=== PATIENT | male | born 1980 | race Caucasian/White ===

== ENCOUNTER 2018-06-12 12:11 | Outpatient (CLI) | payer OTHER ==
--- NOTE | 2018-06-13 10:40 | XRAY Report ---
Reason: LOW BACK PAIN Procedure Date: 06/12/2018 Accession Number: [id number] / [id number] Procedure: XR - Lumbar Spine 2 View CPT Code: FULL RESULT: EXAM: LUMBOSACRAL SPINE RADIOGRAPHY EXAM DATE: 06/12/2018 01:13 PM. CLINICAL HISTORY: LOW BACK PAIN. COMPARISONS: None. TECHNIQUE: 3 views. FINDINGS: Alignment: Normal. No spondylolisthesis or scoliosis. Bones: Five [id number] lumbar vertebral bodies are present. No fractures or bone lesions. Disks: Normal. Disk heights are maintained. Facets: No degenerative changes. Sacroiliac Joints: Unremarkable. Soft Tissues: Normal. The visualized bowel gas pattern is normal. IMPRESSION: Normal lumbar spine radiography. [facility]
== END 2018-06-12 12:12 | disposition home or self-care (01) ==
LOC: DI 12:11
PROVIDERS: ATTEND Chiropractor
DX: M54.5 Low back pain (principal)
CPT/HCPCS: 72100

== ENCOUNTER 2021-02-09 17:45 | Emergency (ER) | payer OTHER ==
[2021-02-09 17:50] VITALS: BP 137/84
[2021-02-09] MEDS ORDERED: TETANUS/DIPHTHERIA/PERTUSSIS 0.5 ML SYRINGE IM ONE (18:57)
--- NOTE | 2021-02-09 19:01 | ED Physician Documentation ---
PD HPI UPPER EXT INJURY - Stated complaint Stated Complaint: RT FINGER LAC/INJ - Chief complaint Chief Complaint: Laceration - History obtained from History obtained from: Patient - History of Present Illness Location: Right, Finger (ring) Type of injury: Laceration Where injury occurred: Home Timing - onset: Today Timing - duration: Hours (1) Timing - details: Abrupt onset Pain level max: 2 Pain level now: 1 Improved by: Rest Worsened by: Moving, Palpating Associated symptoms: No: Weakness, Numbness, Tingling, Swelling Contributing factors: No: Anticoagulated - Additonal information Additional information: Patient is right-handed. Unknown last tetanus. 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 Review of Systems Constitutional: denies: Fever Neurologic: denies: Focal weakness, Numbness PD PAST MEDICAL HISTORY - Past Medical History Past Medical History: No - Past Surgical History Past Surgical History: No - Present Medications Home Medications: Ambulatory Orders Medication Instructions Recorded Confirmed No Known Home Medications 02/09/21 02/09/21 - Allergies Allergies/Adverse Reactions: Allergies Allergy/AdvReac Type Severity Reaction Status Date / Time No Known Drug Allergies Allergy Verified 02/09/21 17:50 - Living Situation Living Situation: reports: With family Living Arrangement: reports: At home - Social History Does the pt have substance abuse?: No - Family History Family history: reports: Non contributory - Immunizations Immunizations: TDAP >10years/unknown PD ED PE NORMAL - Vitals Vital signs reviewed: Yes - General General: Alert and oriented X 3, No acute distress - Derm Derm: Warm and dry - Neuro Neuro: Alert and oriented X 3 - Psych Psych: Normal mood, Normal affect PD ED PE EXPANDED - Extremities RON UE/Hands Visual: 1 - laceration (0.2 cm, linear, subcutaneous. Neurovascular intact. No tendon injury. No nail injury) Results - Vitals Vitals: Vital Signs - 24 hr 02/09/21 17:48 Temperature 36.4 C L Heart Rate 55 L Respiratory 16 Rate Blood Pressure 137/84 H O2 Saturation 100 Oxygen O2 Source Room air Procedures - Laceration (location) R 4th digit Length in cm: 0.2 Wound type: Curved, Into subcut fat, Clean Neurovascular status: Sensory intact, Motor intact, Vascular intact Tendon involvement: Tendon intact Wound preparation: Irrigated copiously NS Skin layer closure: Dermabond Other: Patient tolerated well, No complications, Neurovascular intact, Dressing applied, Tetanus UTD, Tetanus booster given PD MEDICAL DECISION MAKING - ED course Complexity details: considered differential, d/w patient ED course: Tdap given. Wound repaired with Dermabond. Tolerated well. Placed in a finger splint to help protect the tip of the finger. No active bleeding. Tourniquet removed. Patient counseled regarding signs and symptoms for which I believe and urgent re-evaluation would be necessary. Patient with good understanding of and agreement to plan and is comfortable going home at this time This document was made in part using voice recognition software. While efforts are made to proofread this document, sound alike and grammatical errors may occur. Departure - Departure Disposition: 01 Home, Self Care Clinical Impression: Finger laceration Qualifiers: Encounter type: initial encounter Finger: ring finger Damage to nail status: without damage Foreign body presence: without foreign body Laterality: right Qualified Code(s): S61.214A - Laceration without foreign body of right ring finger without damage to nail, initial encounter Condition: Good Instructions: ED Laceration Hand Follow-Up: ETHAN PEREZ PA-C [Primary Care Provider] - As Needed Comments: Follow-up with your doctor as needed. You can remove the splint in a day or 2. Keep the wound clean. Return if you worsen. You were given a tetanus shot today Discharge Date/Time: 02/09/21 19:09
== END 2021-02-09 19:09 | disposition home or self-care (01) ==
LOC: ED 17:45
DX: S61.214A Laceration without foreign body of right ring finger without damage to nail, initial encounter (principal); W26.0XXA Contact with knife, initial encounter; Y93.G1 Activity, food preparation and clean up; Y92.009 Unspecified place in unspecified non-institutional (private) residence as the place of occurrence of the external cause; Z23 Encounter for immunization
CPT/HCPCS: 12001; 90471; 99282; 99283